=== PATIENT | female | born 1985 | race Caucasian/White ===

== ENCOUNTER 2017-09-17 19:46 | Emergency (ER) | payer OTHER ==
[2017-09-17] MEDS ORDERED: NS 0.9% 1000 ML* 1,000 ML IV ONE (21:15)
[2017-09-17 21:34] LABS: Hematocrit 36 % (35-47); Hemoglobin 12.2 g/dl (12.0-16.0); Mean Corpuscular HGB Conc 34 g/dl (31-36); Mean Corpuscular Hemoglobin 31 pg (27-31); Mean Corpuscular Volume 91 fL (80-97); Mean Platelet Volume 9.3 um3 (7.4-10.4); Platelet Count 179 10^3/ul (150-450); Red Blood Count 3.91 10^6/ul (4.0-5.4); Red Cell Distribution Width 13 % (10.5-15); White Blood Count 14.2 10^3/ul (3.5-10.8)
[2017-09-17 21:58] LABS: ABS Basophils 0 10^3/ul (0-0.2); ABS Eosinophils 0 10^3/ul (0-0.6); ABS Lymphocytes 0.7 10^3/ul (1.0-4.8); ABS Monocytes 0.5 10^3/ul (0-0.8); ABS Nucleated RBC 0 10^3/ul; Eosinophil % 0.2 % (0-6); Lymphocyte % 4.6 % (25-47); Nucleated Red Blood Cells % 0
[2017-09-17 22:01] LABS: EGFR Non-African American 173.8 (>60)
[2017-09-17] MEDS ORDERED: Metoclopramide IV* 5 MG/ML 2 ML VIAL IV ONE (22:12)
[2017-09-17 23:06] LABS: Urine Appearance Clear; Urine Blood Negative (Negative); Urine Color Yellow; Urine Ketones 1+ (Negative); Urine Protein Negative (Negative); Urine Specific Gravity 1.019 (1.010-1.030); Urine Urobilinogen Negative (Negative)
--- NOTE | 2017-09-18 00:18 | ED ---
GI/ HPI - HPI Summary HPI Summary: 28 week pt here w/ N/V, chills and fever 101F (auricle) today after glucose testing at OBGYN this morning. She also has RT flank pain but no urinary sx -denies urinary frequency, hesitation, dysuria, hematuria, ab pain, vaginal bleeding/spotting. BM... Daughter, son and partner all have GI sx as well. - History of Current Complaint Chief Complaint: EDAbdPain Time Seen by Provider: 09/17/17 21:14 Stated Complaint: VOMITING /FEVER/CRAMPS/7 MONTHS PREG Hx Obtained From: Patient Hx Last Menstrual Period: ON DEPOPROVERA Pain Intensity: 8 - Allergy/Home Medications Allergies/Adverse Reactions: Allergies Allergy/AdvReac Type Severity Reaction Status Date / Time No Known Allergies Allergy Verified 09/17/17 20:02 PMH/Surg Hx/FS Hx/Imm Hx Previously Healthy: Yes Endocrine/Hematology History: Denies: Hx Diabetes, Hx Thyroid Disease Cardiovascular History: Denies: Hx Hypertension Respiratory History: Denies: Hx Asthma, Hx Chronic Obstructive Pulmonary Disease (COPD) GI History: Denies: Hx Ulcer - Immunization History Immunizations Up to Date: Yes Infectious Disease History: No Infectious Disease History: Denies: Hx Clostridium Difficile, Hx Hepatitis, Hx Human Immunodeficiency Virus (HIV), Hx of Known/Suspected MRSA, Hx Shingles, Hx Tuberculosis, Traveled Outside the [place] in Last 30 Days - Family History Known Family History: Positive: None - Social History Lives: With Family Alcohol Use: None Hx Substance Use: No Substance Use Type: Reports: None Hx Tobacco Use: Yes Smoking Status (MU): Current Every Day Smoker Type: Cigarettes Amount Used/How Often: 1/2 PPD Length of Time of Smoking/Using Tobacco: 7 years Have You Smoked in the Last Year: Yes Review of Systems Positive: Fever, Chills, Fatigue ENT: Negative Negative: Sore Throat, Ear Ache, Nasal Discharge Cardiovascular: Negative Negative: Chest Pain Respiratory: Negative Negative: Shortness Of Breath, Cough Positive: Vomiting, Nausea Positive: flank pain. Negative: burning, dysuria, discharge, frequency, hematuria, incontinence, pain, urgency Musculoskeletal: Negative Skin: Negative Neurological: Negative Psychological: Normal All Other Systems Reviewed And Are Negative: Yes Physical Exam Triage Information Reviewed: Yes Vital Signs On Initial Exam: Initial Vitals Temp Pulse Resp BP Pulse Ox 98.1 F 105 20 123/75 96 09/17/17 19:48 09/17/17 19:48 09/17/17 19:48 09/17/17 19:48 09/17/17 19:48 Vital Signs Reviewed: Yes Appearance: Positive: Ill-Appearing - appears fatigued, Thin Skin: Positive: Warm, Skin Color Reflects Adequate Perfusion, Dry Head/Face: Positive: Normal Head/Face Inspection Eyes: Positive: Normal, EOMI, Conjunctiva Clear ENT: Positive: Normal ENT inspection, Hearing grossly normal, Pharynx normal Neck: Positive: Supple, Nontender, No Lymphadenopathy Respiratory/Lung Sounds: Positive: Clear to Auscultation, Breath Sounds Present. Negative: Rales, Rhonchi, Wheezes Cardiovascular: Positive: Normal, RRR, S1, S2. Negative: Murmur, Rub Abdomen Description: Positive: Nontender, No Organomegaly, Soft, CVA Tenderness (R), Other: - ab. Negative: CVA Tenderness (L) Musculoskeletal: Positive: Normal, Strength/ROM Intact Neurological: Positive: Normal, Sensory/Motor Intact, Alert, Oriented to Person Place, Time, CN Intact II-III Psychiatric: Positive: Normal Diagnostics - Vital Signs Vital Signs Temp Pulse Resp BP Pulse Ox 09/17/17 19:48 98.1 F 105 20 123/75 96 - Laboratory Lab Results: Lab Results 09/17/17 09/17/17 09/17/17 Range/Units 21:25 21:25 21:25 WBC 14.2 H (3.5-10.8) 10^3/ul RBC 3.91 L (4.0-5.4) 10^6/ul Hgb 12.2 (12.0-16.0) g/dl Hct 36 (35-47) % MCV 91 (80-97) fL MCH 31 (27-31) pg MCHC 34 (31-36) g/dl RDW 13 (10.5-15) % Plt Count 179 (150-450) 10^3/ul MPV 9.3 (7.4-10.4) um3 Neut % (Auto) 91.6 H (38-83) % Lymph % (Auto) 4.6 L (25-47) % [place] % (Auto) 3.5 (0-7) % Eos % (Auto) 0.2 (0-6) % Baso % (Auto) 0.1 (0-2) % Absolute Neuts (auto) 13.0 H (1.5-7.7) 10^3/ul Absolute Lymphs (auto) 0.7 L (1.0-4.8) 10^3/ul Absolute Monos (auto) 0.5 (0-0.8) 10^3/ul Absolute Eos (auto) 0 (0-0.6) 10^3/ul Absolute Basos (auto) 0 (0-0.2) 10^3/ul Absolute Nucleated RBC 0 10^3/ul Nucleated RBC % 0 Sodium 134 L (139-145) mmol/L Potassium 3.4 L (3.5-5.0) mmol/L Chloride 104 (101-111) mmol/L Carbon Dioxide 20 L (22-32) mmol/L Anion Gap 10 (2-11) mmol/L BUN 7 (6-24) mg/dL Creatinine 0.42 L (0.51-0.95) mg/dL Est GFR ( Amer) 223.5 (>60) Est GFR (Non-Af Amer) 173.8 (>60) BUN/Creatinine Ratio 16.7 (8-20) Glucose 87 (70-100) mg/dL Lactic Acid 0.6 (0.5-2.0) mmol/L Calcium 8.7 (8.6-10.3) mg/dL Magnesium 1.5 L (1.9-2.7) mg/dL Total Bilirubin 0.40 (0.2-1.0) mg/dL AST 17 (13-39) U/L ALT 10 (7-52) U/L Alkaline Phosphatase 88 (34-104) U/L C-Reactive Protein 6.08 H (< 5.00) mg/L Total Protein 6.7 (6.4-8.9) g/dL Albumin 3.4 (3.2-5.2) g/dL Globulin 3.3 (2-4) g/dL Albumin/Globulin Ratio 1.0 (1-3) Lipase < 10 L (11.0-82.0) U/L Urine Color Urine Appearance Urine pH (5-9) Ur Specific [place] (1.010-1.030) Urine Protein (Negative) Urine Ketones (Negative) Urine Blood (Negative) Urine Nitrate (Negative) Urine Bilirubin (Negative) Urine Urobilinogen (Negative) Ur Leukocyte Esterase (Negative) Urine Glucose (Negative) Blood Type Antibody Screen 09/17/17 09/17/17 Range/Units 21:25 22:53 WBC (3.5-10.8) 10^3/ul RBC (4.0-5.4) 10^6/ul Hgb (12.0-16.0) g/dl Hct (35-47) % MCV (80-97) fL MCH (27-31) pg MCHC (31-36) g/dl RDW (10.5-15) % Plt Count (150-450) 10^3/ul MPV (7.4-10.4) um3 Neut % (Auto) (38-83) % Lymph % (Auto) (25-47) % [place] % (Auto) (0-7) % Eos % (Auto) (0-6) % Baso % (Auto) (0-2) % Absolute Neuts (auto) (1.5-7.7) 10^3/ul Absolute Lymphs (auto) (1.0-4.8) 10^3/ul Absolute Monos (auto) (0-0.8) 10^3/ul Absolute Eos (auto) (0-0.6) 10^3/ul Absolute Basos (auto) (0-0.2) 10^3/ul Absolute Nucleated RBC 10^3/ul Nucleated RBC % Sodium (139-145) mmol/L Potassium (3.5-5.0) mmol/L Chloride (101-111) mmol/L Carbon Dioxide (22-32) mmol/L Anion Gap (2-11) mmol/L BUN (6-24) mg/dL Creatinine (0.51-0.95) mg/dL Est GFR ( Amer) (>60) Est GFR (Non-Af Amer) (>60) BUN/Creatinine Ratio (8-20) Glucose (70-100) mg/dL Lactic Acid (0.5-2.0) mmol/L Calcium (8.6-10.3) mg/dL Magnesium (1.9-2.7) mg/dL Total Bilirubin (0.2-1.0) mg/dL AST (13-39) U/L ALT (7-52) U/L Alkaline Phosphatase (34-104) U/L C-Reactive Protein (< 5.00) mg/L Total Protein (6.4-8.9) g/dL Albumin (3.2-5.2) g/dL Globulin (2-4) g/dL Albumin/Globulin Ratio (1-3) Lipase (11.0-82.0) U/L Urine Color Yellow Urine Appearance Clear Urine pH 6.0 (5-9) Ur Specific [place] 1.019 (1.010-1.030) Urine Protein Negative (Negative) Urine Ketones 1+ A (Negative) Urine Blood Negative (Negative) Urine Nitrate Negative (Negative) Urine Bilirubin Negative (Negative) Urine Urobilinogen Negative (Negative) Ur Leukocyte Esterase Negative (Negative) Urine Glucose Negative (Negative) Blood Type O Positive Antibody Screen Negative Result Diagrams: 09/17/17 21:25 09/17/17 21:25 Lab Statement: Any lab studies that have been ordered have been reviewed, and results considered in the medical decision making process. Re-Evaluation - Re-Evaluation First Eval Change: Improved - anti-emetic + IVF GIGU Course/Dx - Diagnoses Provider Diagnoses: Gastroenteritis Discharge - Sign-Out/Discharge Documenting (check all that apply): Discharge - Discharge Plan Condition: Stable Disposition: HOME Patient Education Materials: Gastroenteritis (ED), (ED) Referrals: John Colunga NP [Primary Care Provider] - Additional Instructions: Stay hydrated with fliuds - avoid solid foods for next few days - advance as tolerated Follow-up with PCP in 2-3 days - call tomorrow to schedule an appointment *If in the meantime you develop fever, intractable vomiting, diarrhea, chest pain, shortness of breath, abdominal pain/contractions, vaginal bleeding, return to ED - Billing Disposition and Condition Condition: STABLE Disposition: HOME
[2017-09-18 00:28] VITALS: BP 111/61
--- NOTE | 2017-09-18 07:33 | RAD ---
INDICATION: Right flank pain in 31-year-old patient COMPARISON: None TECHNIQUE: Longitudinal and transverse scans of the kidneys were obtained. FINDINGS: Kidneys: The kidneys are normal in position. The right kidney appears slightly larger than left. There are no masses or identifiable calculi. There is moderate to severe right-sided hydronephrosis. The right ureter is not visualized. The right kidney measures 13.0 x 6.8 x 7.0 cm and the left kidney 10.9 x 5.6 x 5.4 cm. Other: Neither ureteral jet is identified. IMPRESSION: MODERATE TO SEVERE RIGHT-SIDED HYDRONEPHROSIS. CONSIDER RIGHT-SIDED URETERAL CALCULUS.
== END 2017-09-18 00:27 | disposition home or self-care (01) ==
LOC: ED 19:46
DX: K52.9 Noninfective gastroenteritis and colitis, unspecified (principal); R50.9 Fever, unspecified; F17.210 Nicotine dependence, cigarettes, uncomplicated; R11.2 Nausea with vomiting, unspecified; R10.84 Generalized abdominal pain; R30.0 Dysuria
CPT/HCPCS: 36415; 76775; 80053; 81003; 83605; 83690; 83735; 85025; 86140; 86850; 86900; 86901; 96374; 99282; J2765

== ENCOUNTER 2017-11-07 12:47 | Inpatient (IN) | payer OTHER ==
[2017-11-07] MEDS ORDERED: Dinoprostone* 10 MG VAG.SUPP VAGINAL ONE (14:51)
--- NOTE | 2017-11-07 15:05 | HP ---
General Information - General Information Maternal Age: 31 Grav: 3 Para: 2 SAB: 0 IEA: 0 Estimated Due Date: 11/29/17 Determined By: Early Ultrasound Gestational Age in Weeks and Days: 36 Weeks and 6 Days Maternal Blood Type and Rh: O Positive - Results this Serology/RPR Result: Non-Reactive Rubella Result: Non-Immune HBsAg Result: Negative HIV Result: Negative Past Medical History Delivery History: Hx Uncomplicated Vaginal Delivery Pertinent Past Medical History: See Records - RBBB Pertinent Past Surgical History: None Pertinent Family History: Non-Contributory - Antepartal Records Antepartal Records: Reviewed, Complicated by: - late care seeker, poor compliance, IUGR with elevated SDR Review of Systems Constitutional: Comfortable CV Complaint: No Respiratory: Shortness of Breath: No Gastrointestinal: No Nausea/Vomiting Genitourinary: No Dysuria, No Bleeding, No Leaking Fluid Musculoskeletal: No Complaint Neurological: No Headache, No Visual Changes Movement: Normal Exam Allergies/Adverse Reactions: Allergies No Known Allergies Allergy (Verified 09/17/17 20:02) - Measurements Height: 5 ft 4.5 in Weight: 133 lb Weight in lbs: 133 Body Mass Index (BMI): 22.4 - Exam Abdomen: No Upper Quadrant Pain Breast: Breast Exam Deferred Extremities: No Edema Heart: Normal Rhythm/Heart Sounds HEENT: No Significant Findings - Abdominal Exam Abdomen Exam: Non-Tender - Ultrasound/Biophysical Profile Ultrasound Findings: Done in office on 11/07: efw<10%ile, 3lb 15oz, SDR 4.6, dorian 10. Targeted Exam Findings Cervical Exam: 1cm Effacement: Thick Station: -2 Presenting Part: Vertex Membrane Status: Intact EFM Findings - External Monitor Findings External Monitor Findings: Accelerations Present, No Pattern of Variable or Late Decelerations, Variability Moderate, Baseline Stable Contractions: None Assessment/Plan - Reason for Visit Reason for Visit: @36.6wks with recent sono showing severe IUGR with elevated SDR here for induction. Cervix not favorable so will proceed with cervidil induction. GBS pending. - Obstetrical Risk Factors Obstetrical Risk Factors: GBS Unknown Risk Factors Comment: IUGR - Plan Plan: Induction, Cervical Ripening
[2017-11-07 15:30] LABS: ABS Basophils 0.1 10^3/ul (0-0.2); ABS Eosinophils 0.1 10^3/ul (0-0.6); ABS Lymphocytes 1.9 10^3/ul (1.0-4.8); ABS Monocytes 0.9 10^3/ul (0-0.8); ABS Neutrophils 13.1 10^3/ul (1.5-7.7); ABS Nucleated RBC 0 10^3/ul; Eosinophil % 0.6 % (0-6); Hematocrit 38 % (35-47); Hemoglobin 12.8 g/dl (12.0-16.0); Lymphocyte % 11.7 % (25-47); Mean Corpuscular HGB Conc 34 g/dl (31-36); Mean Corpuscular Hemoglobin 31 pg (27-31); Mean Corpuscular Volume 91 fL (80-97); Mean Platelet Volume 10.1 um3 (7.4-10.4); Nucleated Red Blood Cells % 0; Platelet Count 184 10^3/ul (150-450); Red Cell Distribution Width 13 % (10.5-15)
[2017-11-08] MEDS ORDERED: Dinoprostone* 10 MG VAG.SUPP VAGINAL ONE (07:39)
[2017-11-08] MEDS ORDERED: Oxytocin in LR* 20 UNITS/1,000 ML BAG IVPB ONE (21:32)
[2017-11-08] MEDS ORDERED: Oxytocin in LR* 20 UNITS/1,000 ML BAG IVPB SCH (22:00)
[2017-11-08] MEDS ORDERED: Sodium Citrate/Citric Acid* 15 ML UDC PO PRN (23:20)
[2017-11-08] MEDS ORDERED: Calcium Carbonate CHEW TAB* 500 MG (TUMS) PO PRN (23:20)
[2017-11-09] MEDS ORDERED: Nalbuphine* 20 MG/ML 1 ML VIAL ONE (02:26)
[2017-11-09] MEDS ORDERED: Nalbuphine* 20 MG/ML 1 ML VIAL IV ONE (03:00)
[2017-11-09] MEDS ORDERED: OBEPIDURAL* 250 ML EPIDURAL ONE (07:44)
[2017-11-09] MEDS ORDERED: EPHEDrine (Pressors)* 50 MG/ML VIAL IV PUSH PRN ×2 (08:56)
[2017-11-09] MEDS ORDERED: Famotidine TAB* 20 MG PO PRN (08:56)
[2017-11-09] MEDS ORDERED: Phenylephrine IV* 40 MCG/ML 10 ML SYRINGE IV PUSH PRN ×2 (08:56)
[2017-11-09] MEDS ORDERED: OBEPIDURAL* 250 ML EPIDURAL SCH (09:00)
[2017-11-09] MEDS ORDERED: fentaNYL* 50 MCG/ML 2 ML VIAL (100 MCG VIAL) ONE (16:30)
[2017-11-09] MEDS ORDERED: ceFAZolin 2 GM PREMIX (*) 2 GM/50 ML BAG IVPB ONE ×2 (16:54→16:57)
[2017-11-09] MEDS ORDERED: Phenylephrine IV* 40 MCG/ML 10 ML SYRINGE ONE (17:08)
[2017-11-09] MEDS ORDERED: Ondansetron ODT TAB* 4 MG ONE (17:15)
[2017-11-09] MEDS ORDERED: DiMENhydriNATE IV* 50 MG/ML VIAL ONE (17:18)
[2017-11-09] MEDS ORDERED: Propofol* 10 MG/ML 20 ML BTL IV PUSH ONE (17:21)
[2017-11-09] MEDS ORDERED: Lidocaine 2% PF * 5 ML VIAL ONE (17:21)
[2017-11-09] MEDS ORDERED: EPHEDrine (Pressors)* 50 MG/ML VIAL ONE (17:28)
[2017-11-09 17:48] LABS: ABS Basophils 0.1 10^3/ul (0-0.2); ABS Eosinophils 0.1 10^3/ul (0-0.6); ABS Lymphocytes 1.3 10^3/ul (1.0-4.8); ABS Monocytes 0.9 10^3/ul (0-0.8); ABS Neutrophils 14.4 10^3/ul (1.5-7.7); ABS Nucleated RBC 0 10^3/ul; Eosinophil % 0.3 % (0-6); Hematocrit 30 % (35-47); Hemoglobin 10.1 g/dl (12.0-16.0); Lymphocyte % 7.9 % (25-47); Mean Corpuscular HGB Conc 33 g/dl (31-36); Mean Corpuscular Hemoglobin 30 pg (27-31); Mean Corpuscular Volume 91 fL (80-97); Mean Platelet Volume 9.7 um3 (7.4-10.4); Nucleated Red Blood Cells % 0; Platelet Count 154 10^3/ul (150-450); Red Cell Distribution Width 13 % (10.5-15); White Blood Count 16.7 10^3/ul (3.5-10.8)
[2017-11-09] MEDS ORDERED: Acetaminophen TAB* 325 MG PO PRN (18:01)
[2017-11-09] MEDS ORDERED: Dibucaine 1% 28.35 GM TUBE PR PRN (18:01)
[2017-11-09] MEDS ORDERED: Misoprostol TAB* 200 MCG PR ONE (18:01)
[2017-11-09] MEDS ORDERED: Witch Hazel PAD* JAR TOPICAL PRN (18:01)
[2017-11-09] MEDS ORDERED: Ondansetron ODT TAB* 4 MG PO PRN (18:09)
[2017-11-09] MEDS ORDERED: DiMENhydriNATE IV* 50 MG/ML VIAL IV PUSH PRN (18:09)
[2017-11-09] MEDS ORDERED: Levalbuterol 0.63MG/3ML NEB* UNIT OF USE INH PRN (18:09)
[2017-11-09] MEDS ORDERED: Naloxone* 0.4 MG/ML 1 ML VIAL IV PRN (18:09)
[2017-11-09] MEDS ORDERED: diPHENhydraMINE IV* 50 MG/ML 1 ml VIAL (BENADRYL) IV PRN (18:09)
[2017-11-09] MEDS ORDERED: Oxytocin in LR* 20 UNITS/1,000 ML BAG IVPB SCH (19:00)
[2017-11-09 20:11] LABS: INR 0.93 (0.77-1.02)
[2017-11-09] MEDS: Ibuprofen TAB* 600 MG PO PRN (20:52)
[2017-11-09] MEDS: Docusate CAP* 100 MG PO SCH (20:52)
[2017-11-09] MEDS ORDERED: Simethicone TAB* 80 MG TAB.CHEW PO SCH (21:00)
[2017-11-09] MEDS: oxyCODONE/Acetamin 5/325 MG* TAB PO PRN (22:37)
[2017-11-10] MEDS ORDERED: ceFAZolin 2 GM PREMIX (*) 2 GM/50 ML BAG IVPB ONE (01:00)
[2017-11-10] MEDS: Ibuprofen TAB* 600 MG PO PRN ×4 (04:15→23:35)
[2017-11-10] MEDS: oxyCODONE/Acetamin 5/325 MG* TAB PO PRN (07:44)
[2017-11-10 09:32] LABS: ABS Basophils 0 10^3/ul (0-0.2); ABS Eosinophils 0.1 10^3/ul (0-0.6); ABS Lymphocytes 1.6 10^3/ul (1.0-4.8); ABS Monocytes 0.8 10^3/ul (0-0.8); ABS Neutrophils 11.6 10^3/ul (1.5-7.7); ABS Nucleated RBC 0 10^3/ul; Eosinophil % 0.7 % (0-6); Hematocrit 23 % (35-47); Hemoglobin 7.8 g/dl (12.0-16.0); Lymphocyte % 11.1 % (25-47); Mean Corpuscular HGB Conc 34 g/dl (31-36); Mean Corpuscular Hemoglobin 31 pg (27-31); Mean Corpuscular Volume 90 fL (80-97); Mean Platelet Volume 10.2 um3 (7.4-10.4); Nucleated Red Blood Cells % 0; Platelet Count 136 10^3/ul (150-450); Red Blood Count 2.53 10^6/ul (4.0-5.4); Red Cell Distribution Width 13 % (10.5-15); White Blood Count 14.1 10^3/ul (3.5-10.8)
[2017-11-10] MEDS: Ferrous Gluconate TAB* 324 MG TAB PO SCH ×2 (10:12→21:24)
[2017-11-10] MEDS: Docusate CAP* 100 MG PO SCH ×3 (10:13→21:24)
--- NOTE | 2017-11-10 14:51 | OP ---
DATE OF OPERATION: 11/09/17 - ROOM #117 DATE OF : 81 SURGEON: Yasmine Knight MD. PEANUT SORTER: Dr. Alicia and Neto Henderson CNM. ANESTHESIOLOGIST: Dr. Kidd. ANESTHESIA: Epidural. PRE-OP DIAGNOSIS: Retained placenta, . POST-OP DIAGNOSIS: placenta accreta. OPERATIVE PROCEDURE: Manual extraction of placenta with ultrasound guidance. ESTIMATED BLOOD LOSS: 1000 cc including the vaginal delivery. IV FLUIDS: 700 cc. URINE OUTPUT: 75 cc. MATERIALS FOR LAB: Placenta in fragments. INDICATIONS: This patient was a 31-year-old 3 para 2 who was admitted for induction of labor 2 days ago when she was found to have fetus with significant intrauterine growth restriction and an elevated ST ratio. The patient's induction was slow but she progressed today to deliver by a vaginal delivery. Delivery was uncomplicated but delivery of the placenta was difficult and eventually unsuccessful. The patient was initially given additional epidural medication in the delivery room where attempts were made to remove the placenta manually; however, the placenta felt firmly adhered and the patient also could not tolerate additional manipulation. She was then counselled and consented for a manual extraction in the OR with a potential for emergent hysterectomy if necessary. FINDINGS: Placenta extremely adherent to the posterior and fundal wall of the uterine cavity. Ultrasound used to carefully evaluate the uterus after the placental fragments had been removed and at the end of the case all visible placenta appeared to be successfully removed. COMPLICATIONS: None. DESCRIPTION OF PROCEDURE: The risks, benefits and alternatives were described to the patient and informed consent was obtained. The patient was taken to the operating room with IV running where epidural anesthesia was induced and found to be adequate. The patient was prepped and draped in a normal sterile fashion in high lithotomy position in [facility]. A time-out was performed. A Contreras catheter was replaced. An ultrasound was performed and the extensive placental tissue was easily visualized. A hand was placed into the uterine cavity and the placenta was found to be firmly adhered to the upper posterior and fundal aspects of the uterine cavity. No clear cleavage plan could be determined. The placenta was removed in fragments. Assistance was obtained with Dr. Balderas who confirmed the adherent nature of the placenta and also removed fragments of the placenta. After several manual passes, the ultrasound was used to guide removal of any additional tissue. There did not appear to be any additional remaining placental tissue. The posterior aspect of the uterus felt extremely irregular to palpation but there did not appear to be additional tissue. At that time, there was also very light bleeding from the uterus and the fundus was firm. At that time, the decision was made to treat the patient conservatively with observation with a possible plan for hysterectomy if the patient started to have very heavy or persistent bleeding. The procedure was then completed. The patient was returned to supine position. Sponge, lap and needle counts were correct x2. [id number]/[facility] #: [id number] [facility]
[2017-11-11 08:04] VITALS: BP 112/69
[2017-11-11] MEDS: Docusate CAP* 100 MG PO SCH ×2 (09:02→14:45)
[2017-11-11] MEDS: Ibuprofen TAB* 600 MG PO PRN ×2 (09:03→14:45)
[2017-11-11] MEDS: Ferrous Gluconate TAB* 324 MG TAB PO SCH (09:03)
== END 2017-11-11 16:35 | disposition home or self-care (01) | DRG 541 ==
LOC: MCHOBOUT 12:47 → MCHOB 14:48
PROVIDERS: ADMIT Obstetrics & Gynecology; ATTEND Obstetrics & Gynecology
PROC: 3E033VJ Introduction of Other Hormone into Peripheral Vein, Percutaneous Approach (ICD-10-PCS; 2017-11-09)
PROC: 10907ZC Drainage of Amniotic Fluid, Therapeutic from Products of Conception, Via Natural or Artificial Opening (ICD-10-PCS; 2017-11-09)
PROC: 10D17Z9 Manual Extraction of Products of Conception, Retained, Via Natural or Artificial Opening (ICD-10-PCS; 2017-11-09)
PROC: 10E0XZZ Delivery of Products of Conception, External Approach (ICD-10-PCS; principal; 2017-11-09 17:08)
DX: O36.5930 Maternal care for other known or suspected poor fetal growth, third trimester, not applicable or unspecified (principal); O69.81X0 Labor and delivery complicated by cord around neck, without compression, not applicable or unspecified; O32.6XX0 Maternal care for compound presentation, not applicable or unspecified; O99.344 Other mental disorders complicating childbirth; O73.1 Retained portions of placenta and membranes, without hemorrhage; O90.81 Anemia of the puerperium; D64.9 Anemia, unspecified; F43.10 Post-traumatic stress disorder, unspecified; I45.10 Unspecified right bundle-branch block; Z3A.37 37 weeks gestation of pregnancy; Z37.0 Single live birth
CPT/HCPCS: 36415; 85025; 85384; 85610; 85730; 86850; 86900; 86901; 86922; 88307; A9270-GY; J0690; J1240; J2300; J2704; J3010

== ENCOUNTER → 2018-02-28 10:00 | Day surgery (SDC) | payer OTHER ==
[~2018-02-28 10:00] MED LIST: Atracurium* 10 MG/ML 10 ML VIAL ONE; Buffered Lidocaine 0.9% SYRIN* 5 ML/SYR SYRINGE INTRADERM ONE; Bupivacaine 0.25% SDV PF* 10 ML VIAL INJ ONE; Dexamethasone TAB* 4 MG PO ONE; DiMENhydriNATE IV* 50 MG/ML VIAL IV PUSH PRN; Famotidine IV* 10 MG/ML 2 ML (20 mg) IV ONE; Famotidine IV* 10 MG/ML 2 ML (20 mg) ONE; KETAMINE HCL* 50 MG/ML 10 ML VIAL ONE; Midazolam* 1 MG/ML 5 ML VIAL (5 MG) ONE; Morphine INJ* 2 MG/ML 1 ML SYRINGE (TWO MG - NEW SYRINGE VERSION) IV PRN; Naloxone* 0.4 MG/ML 1 ML VIAL IV PRN; Ondansetron ODT TAB* 4 MG ONE; Ondansetron TAB* 4 MG PO ONE; PROCHLORPERAZINE INJ 5 MG/ML 2 ML VIAL IV PRN; Scopolamine 1.5 mg* PATCH TRANSDERM ONE; Scopolamine PATCH Remove* 1 NOTE MISC PATCH OFF ONE; fentaNYL* 50 MCG/ML 2 ML VIAL (100 MCG VIAL) IV PRN; fentaNYL* 50 MCG/ML 2 ML VIAL (100 MCG VIAL) ONE; oxyCODONE/Acetamin 5/325 MG* TAB PO PRN
--- NOTE | 2018-03-01 10:48 | OP ---
DATE OF OPERATION: 02/28/18 [facility] DATE OF : 81 SURGEON: Yasmine Knight MD ANESTHESIOLOGIST: Dr. Goldberg. ANESTHESIA: General endotracheal. PRE-OP DIAGNOSIS: Satisfied parity. POST-OP DIAGNOSIS: Satisfied parity. OPERATIVE PROCEDURE: Laparoscopic bilateral tubal ligation with Filshie clips. ESTIMATED BLOOD LOSS: Minimal. URINE OUTPUT: 100 mL. IV FLUIDS: 1000 cc Lactated Ringers. MATERIALS TO LAB: None. INDICATIONS: This patient was a 32-year-old 3, para 3, who delivered her third baby recently and desired to have permanent sterilization performed. She was extensively counseled and consent was signed. FINDINGS: Normal-appearing uterus, fallopian tubes, ovaries, and remainder of the pelvis. COMPLICATIONS: None. DESCRIPTION OF PROCEDURE: The risks, benefits, and alternatives were described to the patient, and informed consent was obtained. The patient was taken to the operating room with IV running where general anesthesia was induced and found to be adequate. The patient was prepped and draped in the normal sterile fashion in the low lithotomy position in [facility]. A time-out was performed. The bladder was emptied. A bivalve speculum was placed in the vagina and a Hulka tenaculum was placed through the cervix into the uterus. The speculum was then removed. Attention was then turned to the abdomen. 0.5% Marcaine was then injected into the skin of the umbilicus as well as 2-cm above the pubic symphysis. A 5 mm skin incision was made with a scalpel in the umbilicus. A 5mm bladeless trocar was then inserted through the incision and into the peritoneal cavity without difficulty. The skin was elevated using penetrating towel clamps. Once the trocar was in the abdominal cavity, the abdomen was insufflated with carbon dioxide gas to a maximum pressure of 15 mmHg. The clamps were removed. Using the camera, the area below the trocar placement was carefully inspected and there was no evidence of trauma or bleeding. The patient was placed in the Trendelenburg position. A second incision about 8 mm in length was placed 2 cm above the pubic symphysis in a transverse fashion. An 8-mm blunt trocar was also placed through this incision and into the abdominal cavity without difficulty. Using the Hulka tenaculum for manipulation, the uterus was elevated and well visualized. The structures appeared normal. Filshie clips were prepared. A Filshie clip was then placed on the patient's right fallopian tube in the mid isthmic portion without difficulty. The same was then performed on the patient's left side, again without difficulty and with excellent hemostasis. Care was taken to ensure the clips were placed completely across the entire tube. The case was then completed. The trocars were removed from the abdomen and the gas was allowed to escape. The skin was reapproximated using 4-0 Monocryl in a subcuticular stitch, and the incisions were then overlaid with Dermaflex skin adhesive. The tenaculum was then removed from the cervix as well, and there was only light bleeding from the vagina at that time. The patient was returned to the supine position and allowed to awaken. The patient tolerated the procedure well. Sponge, lap, and needle counts were correct x2. [id number]/[facility] #: [id number] [facility]
== END | disposition home or self-care (01) ==
LOC: OR 10:00
PROVIDERS: ATTEND Obstetrics & Gynecology
DX: Z30.2 Encounter for sterilization (principal); Z72.0 Tobacco use; I45.10 Unspecified right bundle-branch block; J30.2 Other seasonal allergic rhinitis; F41.9 Anxiety disorder, unspecified; F43.12 Post-traumatic stress disorder, chronic
CPT/HCPCS: A9270-GY; J2250; J3010; J3490

== ENCOUNTER 2019-08-03 18:12 | Emergency (ER) | payer OTHER ==
[2019-08-03] MEDS ORDERED: Ketorolac *IM* INJ* 60 MG/2 ML VIAL IM ONE (18:52)
[2019-08-03] MEDS ORDERED: Lidocaine 2% JELLY* 10 ML JELLY TOPICAL ONE (18:52)
[2019-08-03] MEDS ORDERED: Penicillin VK TAB* 250 MG PO ONE (18:53)
--- NOTE | 2019-08-03 18:54 | ED ---
Complex/Multi-Sys Presentation - HPI Summary HPI Summary: 33 y/o female presented to [facility] complaining of right upper molar dental pain for several days. She has been taking ibuprofen for pain. Patient rather histrionic upon initial exam, difficult to obtain additional information. - History Of Current Complaint Chief Complaint: EDDentalPain Time Seen by Provider: 08/03/19 18:36 Hx Obtained From: Patient Onset/Duration: Lasting Days Timing: Constant Severity Currently: Severe Location: Pain At: - right upper mouth Associated Signs And Symptoms: Positive: Agitation, Fever, Other - pain in upper right mouth, dyspnea, inability to see - Allergies/Home Medications Allergies/Adverse Reactions: Allergies Allergy/AdvReac Type Severity Reaction Status Date / Time mustard Allergy Hives Verified 08/03/19 18:16 Home Medications: Home Medications Penicillin VK 500 MG TAB(NF) [Penicillin VK 500 mg Tab] 500 mg PO QID 7 Days # 28 tab 08/03/19 [Rx] PMH/Surg Hx/FS Hx/Imm Hx Endocrine/Hematology History: Reports: Hx Anemia - as a child Denies: Hx Diabetes, Hx Thyroid Disease Cardiovascular History: Reports: Other Cardiovascular Problems/Disorders - right bundle branch block Denies: Hx Hypertension Respiratory History: Denies: Hx Asthma, Hx Chronic Obstructive Pulmonary Disease (COPD), Other Respiratory Problems/Disorders GI History: Denies: Hx Cirrhosis, Hx Crohn's Disease, Hx Diverticulosis, Hx Gall Bladder Disease, Hx Gastroesophageal Reflux Disease, Hx Gastrointestinal Bleed, Hx Hiatal Hernia, Hx Irritable Bowel, Hx Ulcer, Other GI Disorders History: Denies: Hx Kidney Infection, Hx Kidney Stones Musculoskeletal History: Denies: Other Musculoskeletal History Sensory History: Denies: Hx Contacts or Glasses, Hx Hearing Aid Opthamlomology History: Denies: Hx Contacts or Glasses Neurological History: Denies: Other Neuro Impairments/Disorders Psychiatric History: Reports: Hx Anxiety - NOT CURRENTLY SEEING A THERAPIST, Other Psychiatric Issues/Disorders - PTSD - Surgical History Surgery Procedure, Year, and Place: placenta extraction, 2018, [facility] [place] Anesthesia Reactions: No Infectious Disease History: No Infectious Disease History: Denies: Hx Clostridium Difficile, Hx Hepatitis, Hx Human Immunodeficiency Virus (HIV), Hx of Known/Suspected MRSA, Hx Shingles, Hx Tuberculosis, Traveled Outside the [place] in Last 30 Days - Family History Known Family History: Positive: Cardiac Disease, Other - [place], father - Social History Alcohol Use: None Hx Substance Use: No Substance Use Type: Reports: None Hx Tobacco Use: Yes Smoking Status (MU): Current Every Day Smoker Type: Cigarettes Amount Used/How Often: 4-5 cigarettes per day X 10 YEARS Length of Time of Smoking/Using Tobacco: 7 years Have You Smoked in the Last Year: Yes Review of Systems Positive: Fever - claimed by friend Positive: Other - claimed inability to see Positive: Other - dyspnea Positive: Other - dental pain All Other Systems Reviewed And Are Negative: Yes Physical Exam - Summary Physical Exam Summary: Constitutional: Well-developed, Well-nourished, Alert. (-) Distressed Skin: Warm, Dry HENT: Normocephalic; Atraumatic; Right upper first molar with dental decay, gingivitis, no visible abscess noted, no facial swelling or erythema Eyes: Conjunctiva normal Neck: Musculoskeletal ROM normal neck. (-) JVD, (-) Stridor, (-) Tracheal deviation Cardio: Rhythm regular, rate normal, Heart sounds normal; Intact distal pulses; The pedal pulses are 2+ and symmetric. Radial pulses are 2+ and symmetric. (-) Murmur Pulmonary/Chest wall: Effort normal. (-) Respiratory distress, (-) Wheezes, (-) Rales Abd: Soft, (-) tenderness, (-) Distension, (-) Guarding, (-) Rebound Musculoskeletal: (-) Edema Lymph: (-) Cervical adenopathy Neuro: Alert, Oriented x3 Psych: Mood and affect Normal Triage Information Reviewed: Yes Vital Signs On Initial Exam: Initial Vitals Temp Pulse Resp BP Pulse Ox 99.5 F 133 19 138/85 99 08/03/19 18:12 08/03/19 18:12 08/03/19 18:12 08/03/19 18:12 08/03/19 18:12 Vital Signs Reviewed: Yes Procedures - Sedation Patient Received Moderate/Deep Sedation with Procedure: No Diagnostics - Vital Signs Vital Signs Temp Pulse Resp BP Pulse Ox 08/03/19 18:12 99.5 F 133 19 138/85 99 - Laboratory Lab Statement: Any lab studies that have been ordered have been reviewed, and results considered in the medical decision making process. Complex Multi-Symp Course/Dx Course Of Treatment: 33 y/o female presented to [facility] complaining of pain dental pain in the region of her right upper molars. Pt rather histronic upon initial exam, much more relaxed after receiving IM Toradol and Viscous Lidocaine. No visible abscesses or facial swelling. Patient given Pen VK in the ED and prescription for same and encouraged to follow up with a dentist as soon as possible. Exam showed right upper first molar with dental decay, gingivitis, no visible abscess noted, no facial swelling or erythema. Pt was given 60mg IM Toradol and 15ml PO Lidocaine. Pt was diagnosed with dental pain ; prescribed penicillin PO; and discharged to home. - Diagnoses Provider Diagnoses: Pain, dental Discharge ED - Sign-Out/Discharge Documenting (check all that apply): Patient Departure - dc - Discharge Plan Condition: Stable Disposition: HOME Prescriptions: Penicillin VK 500 MG TAB(NF) [Penicillin VK 500 mg Tab] 500 mg PO QID 7 Days # 28 tab Patient Education Materials: Toothache (ED) Referrals: John Colunga NP [Primary Care Provider] - Additional Instructions: Follow up with your primary care provider and a dentist in 2-3 days. If you experience new or worsening symptoms please return to the ER. - Billing Disposition and Condition Condition: STABLE Disposition: Home - Attestation Statements Document Initiated by Essence: Yes Documenting Scribe: Bob Little Provider For Whom Essence is Documenting (Include Credential): Niranjan Connolly DO Scribe Attestation: Bob Vaughan scribed for Niranjan Connolly DO on 08/03/19 at 2116. Scribe Documentation Reviewed: Yes Provider Attestation: The documentation as recorded by the Bob calles accurately reflects the service I personally performed and the decisions made by Niranjan duong DO Status of Scribayala Document: Viewed
[2019-08-03] MEDS ORDERED: Lidocaine 2% VISCOUS* 15 ML UDC PO ONE (19:37)
[2019-08-03 20:44] VITALS: BP 109/71
== END 2019-08-03 20:42 | disposition home or self-care (01) ==
LOC: ED 18:12
DX: K08.89 Other specified disorders of teeth and supporting structures (principal); K02.9 Dental caries, unspecified; K05.10 Chronic gingivitis, plaque induced; R50.9 Fever, unspecified; R45.1 Restlessness and agitation; I45.10 Unspecified right bundle-branch block; Z91.018 Allergy to other foods; F17.210 Nicotine dependence, cigarettes, uncomplicated
CPT/HCPCS: 96372; 99282; A9270-GY; J1885

== ENCOUNTER 2019-08-04 17:59 | Emergency (ER) | payer OTHER ==
[2019-08-04 18:28] VITALS: BP 122/83
[2019-08-04] MEDS ORDERED: Ketorolac INJ* 30 MG/ML 1 ML VIAL IM ONE ×2 (18:58→19:58)
[2019-08-04] MEDS ORDERED: Lidocaine 2% VISCOUS* 15 ML UDC PO ONE (19:44)
[2019-08-04] MEDS ORDERED: HYDROcodone/ACETAMIN 5-325 MG* 1 TAB PO ONE (20:18)
[2019-08-04] MEDS ORDERED: Lidocaine 2% VISCOUS* 15 ML UDC SWISH SPIT ONE (20:19)
--- NOTE | 2019-08-04 20:34 | UC ---
Dental HPI - HPI Summary HPI Summary: 33 year old female with h/o multiple cavities, one that needs fillings, presents with right sided facial pain radiating from her tooth to her posterior eye. SHe had a history of migraines in the past but not for years and feels this is similar. Was seen in ER last night for similar pain after she states she passed out from pain. She has no memory of being in the ER and feels she "blacked out". no ETOH no drug use. was given PCN, feels this is helping, pain is less severe than last night but she is concerned that it will return and be as bad. no fever, chills, no feeling ill, no recent illnesses, no drainage - History of Current Complaint Chief Complaint: UCDentalProblem Stated Complaint: HEAD, JAW, TOOTH PAIN Time Seen by Provider: 08/04/19 18:36 Hx Obtained From: Patient, Family/Returned Goods Receiving Clerk - significant other Hx Last Menstrual Period: one week ago ?: No Onset/Duration: Sudden Onset, Lasting Days - 2 Severity: Severe Pain Intensity: 10 Pain Scale Used: 0-10 Numeric Aggravating Factor(s): Chewing Alleviating Factor(s): OTC Meds - lidocaine - Allergies/Home Medications Allergies/Adverse Reactions: Allergies Allergy/AdvReac Type Severity Reaction Status Date / Time mustard Allergy Hives Verified 08/04/19 18:28 Home Medications: Home Medications Penicillin VK 500 MG TAB(NF) [Penicillin VK 500 mg Tab] 500 mg PO QID 7 Days # 28 tab 08/03/19 [Rx Confirmed 08/04/19] Aspirin/Acetaminophen/Caffeine [Excedrin Extra Strength Caplet] 2 tab PO ONCE [History Confirmed 08/04/19] Ketorolac TAB * [Toradol TAB *] 10 mg PO Q8H #8 tab MDD 3 08/04/19 [Rx] PMH/Surg Hx/FS Hx/Imm Hx Previously Healthy: Yes - Surgical History Surgical History: Yes Surgery Procedure, Year, and Place: placenta extraction, 2018, [facility] – [place] - Family History Known Family History: Positive: Cardiac Disease, Other - [place], father - Social History Alcohol Use: None Substance Use Type: None Smoking Status (MU): Current Every Day Smoker Type: Cigarettes Amount Used/How Often: 4-5 cigarettes per day X 10 YEARS Length of Time of Smoking/Using Tobacco: 7 years Have You Smoked in the Last Year: Yes - Immunization History [facility] Most Recent Pneumonia Vaccination: none Review of Systems All Other Systems Reviewed And Are Negative: Yes Constitutional: Negative: Fever, Chills, Fatigue Eyes: Positive: Other - posterior right eye pain. Negative: Blurred Vision, Diplopia, Drainage, Eye Redness, Photophobia ENT: Positive: Dental Pain Musculoskeletal: Positive: Negative Neurological/Mental Status: Positive: Headache Psychological: Positive: Negative Is Patient Immunocompromised?: No Physical Exam Triage Information Reviewed: Yes Appearance: Well-Appearing, Well-Nourished, Pain Distress - mild Vital Signs: Initial Vital Signs Temp 97.9 F 08/04/19 18:23 Pulse 66 08/04/19 18:23 Resp 12 08/04/19 18:23 BP 122/83 08/04/19 18:23 Pulse Ox 99 08/04/19 18:23 Vital Signs Reviewed: Yes Eyes: Positive: Conjunctiva Clear ENT: Positive: Hearing grossly normal, Pharynx normal, TMs normal. Negative: Pharyngeal erythema, TM bulging, TM dull, TM red, Tonsillar swelling, Tonsillar exudate, Sinus tenderness, Uvula midline Dental: Positive: Gross Decay/Caries @ - several missing teeth, on right side 2 bottom morals remaining, upper 3 morals with gross decay. gingivitis throughout mouth. Neck: Positive: Supple, No Lymphadenopathy, Tenderness @ - periaur R side. Respiratory: Positive: Chest non-tender, Lungs clear, Normal breath sounds, No respiratory distress, No accessory muscle use. Negative: Respiratory distress, Crackles, Rhonchi, Stridor, Wheezing Cardiovascular: Positive: RRR, No Murmur Skin Exam: Normal Skin: Positive: Other - no facial edema, TTP over TMJ, periauricular region, no posterior ear tenderness. full cerivcal ROM. Negative: Rashes Dental Complaint Course/Dx - Course Course Of Treatment: Head CT due to symptoms- negative for bleed. - Follow up with oral surgeon/ dentist for evaluation of teeth - Continue antibiotics as directed - Motrin/ tylenol as needed for mild to moderate pain - Derwood as needed for severe pain - Lidocaine topically as needed for pain - Go to Er with increased pain, neck stiffness, difficulty swallowing/ breathing - Differential Dx/Diagnosis Differential Diagnosis/Dx: Gingivitis, Peridontic Disease, Peritonsillar Abcess , Tonsillitis Provider Diagnosis: Toothache, Periodontal disease Discharge ED - Sign-Out/Discharge Documenting (check all that apply): Patient Departure All imaging exams completed and their final reports reviewed: Yes - Discharge Plan Condition: Good Disposition: HOME Prescriptions: Ketorolac TAB * [Toradol TAB *] 10 mg PO Q8H #8 tab MDD 3 Patient Education Materials: Toothache (ED) Forms: *Work Release Referrals: [facility] [Provider Group] Edinson Kennedy PA [Primary Care Provider] - Fareed Thorne MD [Doctor of Dental Medicine] - Additional Instructions: - Follow up with oral surgeon/ dentist for evaluation of teeth - Continue antibiotics as directed - Motrin/ tylenol as needed for mild to moderate pain - Derwood as needed for severe pain - Lidocaine topically as needed for pain - Go to Er with increased pain, neck stiffness, difficulty swallowing/ breathing - Billing Disposition and Condition Condition: GOOD Disposition: Home
== END 2019-08-04 20:23 | disposition home or self-care (01) ==
LOC: UCEAST 17:59
DX: K05.6 Periodontal disease, unspecified (principal); K08.89 Other specified disorders of teeth and supporting structures; R51 Headache; F17.210 Nicotine dependence, cigarettes, uncomplicated; Z91.018 Allergy to other foods
CPT/HCPCS: 70450; 96372; 99213; G0463; J1885

== ENCOUNTER 2019-08-21 12:49 | Emergency (ER) | payer OTHER ==
[2019-08-21 14:31] VITALS: BP 105/64
--- NOTE | 2019-08-21 14:42 | UC ---
Abdominal Pain Female HPI - HPI Summary HPI Summary: 33-year-old female presenting with generalized abdominal pain that she states is worse in the lower abdomen since this morning around 6 AM. Patient states the pain "feels like contractions." He states the pains are intermittent and appeared to be worse when she "eats food and moves around too much." Patient states she felt like she needed to pass gas so she went to radiate before coming here where she became nauseous and threw up. States she then felt better but then came here and ate peanut butter crackers in the waiting room which made her throw up again. Denies hematemesis. Denies urinary symptoms. Denies diarrhea. States her last bowel movement was yesterday morning and was normal. Denies fever and chills. Denies body aches. Patient notes that she is currently being treated with amoxicillin by dentist for approximately one week for a dental infection. States pain has been better and because of that she has began to eat more, including [place] from [place] yesterday. PSHx significant for tubal ligation and placental extraction. - History of Current Complaint Chief Complaint: UCAbdominalPain Stated Complaint: ABDOMINAL PAIN Hx Obtained From: Patient Hx Last Menstrual Period: 07/31/19 Pain Intensity: 8 Pain Scale Used: 0-10 Numeric Allergies/Adverse Reactions: Allergies Allergy/AdvReac Type Severity Reaction Status Date / Time mustard Allergy Hives Verified 08/21/19 14:31 Home Medications: Home Medications Penicillin VK 500 MG TAB(NF) [Penicillin VK 500 mg Tab] 500 mg PO QID 7 Days # 28 tab 08/03/19 [Rx Confirmed 08/21/19] Aspirin/Acetaminophen/Caffeine [Excedrin Extra Strength Caplet] 2 tab PO ONCE [History Confirmed 08/21/19] PMH/Surg Hx/FS Hx/Imm Hx - Surgical History Surgical History: Yes Surgery Procedure, Year, and Place: placenta extraction, 2018, [facility] – [place] - Family History Known Family History: Positive: Cardiac Disease, Other - [place], father - Social History Alcohol Use: None Substance Use Type: None Smoking Status (MU): Current Every Day Smoker Type: Cigarettes Amount Used/How Often: 4-5 cigarettes per day X 10 YEARS Length of Time of Smoking/Using Tobacco: 7 years Have You Smoked in the Last Year: Yes - Immunization History Most Recent Influenza Vaccination: uknown Most Recent Pneumonia Vaccination: none Review of Systems All Other Systems Reviewed And Are Negative: Yes Constitutional: Positive: Negative ENT: Positive: Negative Respiratory: Positive: Negative Cardiovascular: Positive: Negative Gastrointestinal: Positive: Abdominal Pain - diffuse, lower cramping, Vomiting - x2, Nausea. Negative: Diarrhea Genitourinary: Positive: Negative Musculoskeletal: Positive: Negative Neurological/Mental Status: Positive: Negative Physical Exam - Summary Physical Exam Summary: Vital Signs Reviewed: Yes A+Ox3, no distress, well-appearing, sitting comfortably on stretcher Eyes: Conjunctiva Clear ENT: Hearing grossly normal, TM x 2 clear, moist, uvula midline, no exudate, no erythema Dental: +TTP of left upper molars without sign of infection, no fluctuance, no cellulitis, no facial swelling Neck: Positive: Supple, no lymphadenopathy Respiratory: Positive: No respiratory distress, No accessory muscle use + CTA throughout no w/r Cardiovascular: bradycardia, regular rhythm nl s1, s2 no m/r Abd: soft + BS nt/nd no guarding, no mcburney point tenderness, negative burt sign, no organomegaly Musculoskeletal Exam: RASMUSSEN x 4 without difficulty Neurological: Positive: Alert Psychological: Positive: age appropriate behavior Skin: Positive: no rash, no ecchymosis Vital Signs: Initial Vital Signs Temp 98.3 F 08/21/19 14:26 Pulse 48 08/21/19 14:26 Resp 16 08/21/19 14:26 BP 105/64 08/21/19 14:26 Pulse Ox 100 08/21/19 14:26 Lab Results 08/21/19 08/21/19 Range/Units 15:08 15:10 POC Urine Color Yellow POC Urine Clarity Cloudy POC Urine pH 5.5 (5-9) POC Ur Specif [place] 1.025 (1.010-1.030) POC Urine Protein Negative (Negative) POC Ur Glucose (UA) Negative (Negative) POC Urine Ketones Negative (Negative) POC Urine Blood Negative (Negative) POC Urine Nitrite Negative (Negative) POC Urine Bilirubin Negative (Negative) POC Urine Urobilinogen 0.2 (Negative) POC U Leukocyte Esteras 3+ A (Negative) POC Ur Test Negative (Negative) Abd Pain Female Course/Dx - Course Course Of Treatment: UA positive for 3+ leuks. Patient not having urinary symptoms, abdomen is nontender and already taking amoxicillin for dental infection. Abdominal symptoms may be caused by prolonged antibiotic use or do not want to prescribe any other antibiotics until urine culture results are received. The patient received Zofran and GI cocktail here and stated relief of symptoms. I educated on bland diet and use of Tylenol to help relieve symptoms. Instructed not to take antibiotics on an empty stomach. Educated on signs and symptoms of worsening abdominal illness and instructed to go to ED for any red flags occur. Patient voiced understanding and agreed with the treatment plan. - Differential Dx/Diagnosis Provider Diagnosis: Acute abdominal pain, Nausea and vomiting Discharge ED - Sign-Out/Discharge Documenting (check all that apply): Patient Departure All imaging exams completed and their final reports reviewed: No Studies - Discharge Plan Condition: Stable Disposition: HOME Patient Education Materials: Acute Abdominal Pain (ED) Referrals: Edinson Kennedy PA [Primary Care Provider] - Additional Instructions: Your urine has been sent for culture and you'll be notified with any results that required treatment. Get plenty of rest and fluids. Eat a bland diet, such as toast, bananas, and rice while symptoms are present. Do not take your antibiotics on an empty stomach. Go to the emergency room if your symptoms do not resolve or you develop fever, severer abdominal pain, excessive vomiting/diarrhea, blood in the stool, or are unable to keep fluids down. - Billing Disposition and Condition Condition: STABLE Disposition: Home
[2019-08-21] MEDS ORDERED: Lidocaine 2% VISCOUS* 15 ML UDC PO ONE (15:02)
[2019-08-21] MEDS ORDERED: Al Hydrox/Mg Hydrox/Simet LIQ* 30 ML UDC PO ONE (15:03)
[2019-08-21] MEDS ORDERED: Ondansetron ODT TAB* 4 MG SL PRN (15:03)
[2019-08-21] MEDS ORDERED: Ondansetron ODT TAB* 4 MG SL ONE (15:15)
--- NOTE | 2019-08-25 09:25 | UC ---
- Progress Note Progress Note: Urine culture from August 21, 2019 comes back positive for Mouna tropicalis and normal dean 10-25,000. Nursing to call patient and determine if the patient is still symptomatic. If the patient has any symptoms I would plan to treat with Diflucan and potentially an antibiotic also. Course/Dx - Diagnoses Provider Diagnoses: Acute abdominal pain, Nausea and vomiting Discharge ED - Sign-Out/Discharge Documenting (check all that apply): Patient Departure All imaging exams completed and their final reports reviewed: No Studies - Discharge Plan Condition: Stable Disposition: HOME Patient Education Materials: Acute Abdominal Pain (ED) Referrals: Edinson Kennedy PA [Primary Care Provider] - Additional Instructions: Your urine has been sent for culture and you'll be notified with any results that required treatment. Get plenty of rest and fluids. Eat a bland diet, such as toast, bananas, and rice while symptoms are present. Do not take your antibiotics on an empty stomach. Go to the emergency room if your symptoms do not resolve or you develop fever, severer abdominal pain, excessive vomiting/diarrhea, blood in the stool, or are unable to keep fluids down. - Billing Disposition and Condition Condition: STABLE Disposition: Home
== END 2019-08-21 15:56 | disposition home or self-care (01) ==
LOC: UCEAST 12:49
DX: R10.9 Unspecified abdominal pain (principal); R11.2 Nausea with vomiting, unspecified; F17.210 Nicotine dependence, cigarettes, uncomplicated; Z91.018 Allergy to other foods
CPT/HCPCS: 81003; 84702; 87086; 87106; 99212; A9270-GY; G0463

== ENCOUNTER 2019-08-30 16:09 | Emergency (ER) | payer OTHER ==
[2019-08-30 17:13] VITALS: BP 115/72
--- NOTE | 2019-08-30 17:22 | UC ---
Dental HPI - HPI Summary HPI Summary: Pt c/o tooth infection in 4 teeth. Seen in ER first then seen by dentist the next day who prescribed amoxicillin - pt had refill called in for amox a few days ago, states. Has an oral surgery appt 10/12 , she is on wait list to be seen sooner though. Pt c/o the pain is severe. taking 800mg ibu tid. has stomach aches b/c of ibu - History of Current Complaint Chief Complaint: UCDentalProblem Stated Complaint: TOOTH COMP Time Seen by Provider: 08/30/19 17:18 Hx Obtained From: Patient Hx Last Menstrual Period: 08/26/19 Pain Intensity: 7 Pain Scale Used: 0-10 Numeric - Allergies/Home Medications Allergies/Adverse Reactions: Allergies Allergy/AdvReac Type Severity Reaction Status Date / Time mustard Allergy Hives Verified 08/30/19 17:04 Home Medications: Home Medications Amoxicillin PO (*) [Amoxicillin 500 MG CAP*] 500 mg PO TID 08/30/19 [History Confirmed 08/30/19] Amoxicillin/Clavulanate TAB* [Augmentin TAB 875*] 875 mg PO BID 10 Days #20 tab 08/30/19 [Rx] Ibuprofen TAB* [Motrin TAB* 800 MG] 800 mg PO ONCE 08/30/19 [History Confirmed 08/30/19] Meloxicam 7.5 mg PO DAILY 10 Days #10 tablet 08/30/19 [Rx] PMH/Surg Hx/FS Hx/Imm Hx - Additional Past Medical History Additional PMH: poor dentition Previously Healthy: Yes - Surgical History Surgical History: Yes Surgery Procedure, Year, and Place: placenta extraction, 2018, [facility] [place] - Family History Known Family History: Positive: Cardiac Disease, Other - [place], father - Social History Alcohol Use: None Substance Use Type: None Smoking Status (MU): Current Every Day Smoker Type: Cigarettes Amount Used/How Often: 4-5 cigarettes per day X 10 YEARS Length of Time of Smoking/Using Tobacco: 7 years Have You Smoked in the Last Year: Yes - Immunization History Most Recent Influenza Vaccination: uknown Most Recent Pneumonia Vaccination: none Review of Systems All Other Systems Reviewed And Are Negative: Yes Constitutional: Negative: Fever ENT: Positive: Dental Pain Musculoskeletal: Negative: Other: - neck pain Neurological/Mental Status: Negative: Headache Physical Exam Vital Signs: Initial Vital Signs Temp 98.5 F 08/30/19 17:05 Pulse 65 08/30/19 17:05 Resp 18 08/30/19 17:05 BP 115/72 08/30/19 17:05 Pulse Ox 98 08/30/19 17:05 ENT: Positive: Uvula midline. Negative: Trismus Dental: Positive: Other: - INFALMMED GUMS OVERALL W/ ABOUT 4 TEETH THAT HAVE SIGNIFICANT REDNESS/SWELLING Neck: Positive: Supple Respiratory: Positive: No respiratory distress Dental Complaint Course/Dx - Course Course Of Treatment: 4 DENTAL ABSCESSES IN A PT. ALREADY ON AMOX, HAS 1 MORE WEEK. WHEN SHE FINISHES THAT SHE CAN CHANGE TO AUGMENTIN. FOR NOW OK TO STOP IBU AND SWITCH TO MELOXICAM TO SEE IF THAT HELPS. SHE DID NOT WANT NAPROXEN. PLAN IS TO HAVE HER CONT. CALLING DENTAL OFFICE FOR CANCELLATIONS AND HAVE HER 10/12 DENTAL PROCEDURE MOVED UP. - Differential Dx/Diagnosis Differential Diagnosis/Dx: Dental Abscess, Dental Caries, Fractured Tooth Provider Diagnosis: Dental abscess Discharge ED - Sign-Out/Discharge Documenting (check all that apply): Patient Departure All imaging exams completed and their final reports reviewed: No Studies - Discharge Plan Condition: Good Disposition: HOME Prescriptions: Amoxicillin/Clavulanate TAB* [Augmentin TAB 875*] 875 mg PO BID 10 Days #20 tab Meloxicam 7.5 mg PO DAILY 10 Days #10 tablet Patient Education Materials: Dental Abscess (ED) Referrals: Edinson Kennedy PA [Primary Care Provider] - Additional Instructions: when ibuprofen runs out oki to switch to meloxicam. when your amoxicillin runs out ok to switch to new antibiotic. please keep calling your dental office to see if they have sooner appt see patient education - Billing Disposition and Condition Condition: GOOD Disposition: Home
== END 2019-08-30 17:32 | disposition home or self-care (01) ==
LOC: UCEAST 16:09
DX: K04.7 Periapical abscess without sinus (principal); Z79.2 Long term (current) use of antibiotics; Z91.018 Allergy to other foods; F17.210 Nicotine dependence, cigarettes, uncomplicated
CPT/HCPCS: 99212; G0463